=== PATIENT | female | born 1990 | race Caucasian/White ===

== ENCOUNTER 2017-05-20 18:41 | Inpatient (IN) | payer BC, OTHER ==
[~2017-05-20] VITALS: Ht 149.9 cm; Wt 68.8 kg
[2017-05-20] MEDS ORDERED: SODIUM CHLOR 0.9% 1000 ML INJ 1,000 ML IV ONE ×2 (19:15→21:00)
[2017-05-20 19:46] VITALS: BP 118/77; PULSE 161; RESP 16; TEMP 98.7; O2SAT 97
[2017-05-20 20:02] LABS: AUTOMATED NEUTROPHIL # 6.1 TH/MM3 (1.8-7.7); BASOPHIL # 0.1 TH/MM3 (0-0.2); BASOPHIL % 0.5 % (0.0-2.0); EOSINOPHIL # 0.1 TH/MM3 (0-0.4); EOSINOPHIL % 1.3 % (0.0-4.0); HEMATOCRIT 46.7 % (35.0-46.0); HEMOGLOBIN 16.3 GM/DL (11.6-15.3); LYMPH % 35.4 % (9.0-44.0); LYMPHOCYTE # 3.8 TH/MM3 (1.0-4.8); MEAN CELL VOLUME 87.6 FL (80.0-100.0); MEAN CORPUSCULAR HEMOGLOBIN 30.6 PG (27.0-34.0); MEAN PLATELET VOLUME 7.8 FL (7.0-11.0); MONO % 5.6 % (0.0-8.0); MONOCYTE # 0.6 TH/MM3 (0-0.9); NEUT % 57.2 % (16.0-70.0); PLATELET COUNT 388 TH/MM3 (150-450); RED BLOOD COUNT 5.33 MIL/MM3 (4.00-5.30); RED CELL DISTRIBUTION WIDTH 14.1 % (11.6-17.2); WHITE BLOOD COUNT 10.7 TH/MM3 (4.0-11.0)
[2017-05-20 20:43] LABS: ALBUMIN 4.4 GM/DL (3.4-5.0); AST (GOT) 22 U/L (15-37); BICARBONATE 20.2 MEQ/L (21.0-32.0); BLOOD UREA NITROGEN 11 MG/DL (7-18); CALCIUM 8.8 MG/DL (8.5-10.1); CHLORIDE 110 MEQ/L (98-107); CREATININE 0.97 MG/DL (0.50-1.00); GLOMERULAR FILTRATION RATE 69 ML/MIN (>89); GLUCOSE,RANDOM 86 MG/DL (74-106); SODIUM (NA) 143 MEQ/L (136-145)
[2017-05-20 20:44] LABS: ALT (GPT) 50 U/L (10-53)
[2017-05-20 20:51] LABS: ACETAMINOPHEN LESS THAN 2.0 MCG/ML (10.0-30.0)
[2017-05-20 20:54] LABS: ALKALINE PHOSPHATASE 74 U/L (45-117); TOTAL BILIRUBIN ADULT 0.1 MG/DL (0.2-1.0); TOTAL PROTEIN 8.4 GM/DL (6.4-8.2)
--- NOTE | 2017-05-20 21:07 | PD ---
HPI Chief Complaint: Psychiatric Symptoms Time Seen by Provider: 19:08 Travel History International Travel<30 days: No Contact w/Intl Traveler<30days: No Traveled to known affect area: No History of Present Illness HPI Patient is a 27 year old female who is brought in by police under a [place] Act after telling her she wanted to kill herself. She reports taking 12 Xanax (1mg) and drinking alcohol tonight. She denies previous suicide attempts. She denies any medical complaints. She denies any pains. [facility] Past Medical History Diminished Hearing: No Immunizations Current: Yes ?: Not : 1 Past Surgical History Oral Surgery: Yes (wisdom teeth removed) Social History Alcohol Use: No Tobacco Use: No Substance Use: No Allergies-Medications (Allergen,Severity, Reaction): Coded Allergies: No Known Allergies (Unverified , 12/19/16) Reported Meds & Prescriptions Reported Meds & Active Scripts Active No Active Prescriptions or Reported Medications Review of Systems Except as stated in HPI: all other systems reviewed are Neg General / Constitutional: No: Fever, Chills HENT: No: Headaches Cardiovascular: No: Chest Pain or Discomfort Respiratory: No: Shortness of Breath Gastrointestinal: No: Nausea, Vomiting Musculoskeletal: No: Myalgias Psychiatric: Positive: Depression, Suicidal Ideations Physical Exam Narrative GENERAL: Awake and alert, obviously intoxicated. SKIN: Focused skin assessment warm/dry. HEAD: Atraumatic. Normocephalic. EYES: Pupils enlarged, equal and reactive. No scleral icterus. EOMI. ENT: Mucous membranes pink and moist. NECK: Trachea midline. No JVD. CARDIOVASCULAR: Tachycardia. No murmur appreciated. RESPIRATORY: No accessory muscle use. Clear to auscultation. Breath sounds equal bilaterally. GASTROINTESTINAL: Abdomen soft, non-tender, nondistended. MUSCULOSKELETAL: No obvious deformities. No clubbing. No cyanosis. No edema. NEUROLOGICAL: Awake and alert. No obvious cranial nerve deficits. Motor grossly within normal limits. Normal speech. PSYCHIATRIC: alcohol on breath, clearly intoxicated Data Data Last Documented VS Vital Signs Date Time Temp Pulse Resp B/P (MAP) Pulse Ox O2 Delivery O2 Flow Rate FiO2 05/20/17 19:46 98.7 161 16 118/77 (91) 97 Orders Orders Complete Blood Count With Diff (05/20/17 19:08) Comprehensive Metabolic Panel (05/20/17 19:08) Thyroid Stimulating Hormone (05/20/17 19:08) Ed Urine Pregnancytest Poc (05/20/17 19:08) Psych Screen (05/20/17 19:08) Drug Screen, Random Urine (05/20/17 19:08) Alcohol (Ethanol) (05/20/17 19:08) Salicylates (Aspirin) (05/20/17 19:08) Tylenol (Acetaminophen) (05/20/17 19:08) Sodium Chlor 0.9% 1000 Ml Inj (Ns 1000 M (05/20/17 19:15) Restraints Non-Violent STEPH.Q3H (05/20/17 20:23) Sodium Chlor 0.9% 1000 Ml Inj (Ns 1000 M (05/20/17 21:00) Labs Laboratory Tests Test 05/20/17 19:26 White Blood Count 10.7 TH/MM3 Red Blood Count 5.33 MIL/MM3 Hemoglobin 16.3 GM/DL Hematocrit 46.7 % Mean Corpuscular Volume 87.6 FL Mean Corpuscular Hemoglobin 30.6 PG Mean Corpuscular Hemoglobin Concent 35.0 % Red Cell Distribution Width 14.1 % Platelet Count 388 TH/MM3 Mean Platelet Volume 7.8 FL Neutrophils (%) (Auto) 57.2 % Lymphocytes (%) (Auto) 35.4 % Monocytes (%) (Auto) 5.6 % Eosinophils (%) (Auto) 1.3 % Basophils (%) (Auto) 0.5 % Neutrophils # (Auto) 6.1 TH/MM3 Lymphocytes # (Auto) 3.8 TH/MM3 Monocytes # (Auto) 0.6 TH/MM3 Eosinophils # (Auto) 0.1 TH/MM3 Basophils # (Auto) 0.1 TH/MM3 CBC Comment DIFF FINAL Differential Comment Blood Urea Nitrogen 11 MG/DL Creatinine 0.97 MG/DL Random Glucose 86 MG/DL Total Protein 8.4 GM/DL Albumin 4.4 GM/DL Calcium Level 8.8 MG/DL Alkaline Phosphatase 74 U/L Aspartate Amino Transf (AST/SGOT) 22 U/L Alanine Aminotransferase (ALT/SGPT) 50 U/L Total Bilirubin 0.1 MG/DL Sodium Level 143 MEQ/L Potassium Level 3.5 MEQ/L Chloride Level 110 MEQ/L Carbon Dioxide Level 20.2 MEQ/L Anion Gap 13 MEQ/L Estimat Glomerular Filtration Rate 69 ML/MIN Thyroid Stimulating Hormone 3rd Gen 1.860 uIU/ML Salicylates Level LESS THAN 1.7 MG/DL Urine Opiates Screen NEG Acetaminophen Level LESS THAN 2.0 MCG/ML Urine Barbiturates Screen NEG Urine Amphetamines Screen NEG Urine Benzodiazepines Screen POS Urine Cocaine Screen NEG Urine Cannabinoids Screen NEG Ethyl Alcohol Level 149 MG/DL MDM Medical Decision Making Medical Screen Exam Complete: Yes Emergency Medical Condition: Yes Medical Record Reviewed: Yes Differential Diagnosis intoxication vs depression vs dehydration Narrative Course Patient is a 27 year old female who comes in under a [place] Act. She has no medical complaints, but is tachycardic on arrival. IV established, labs sent. Given IVF. Labs show she is positive for benzodiazepines and alcohol. Tachycardia improving with IVF. Observed in the ED and then medically cleared for psychiatric evaluation. Diagnosis Primary Impression: Alcohol intoxication Qualified Codes: F10.920 - Alcohol use, unspecified with intoxication, uncomplicated Additional Impression: Intoxication by drug Qualified Codes: F19.920 - Other psychoactive substance use, unspecified with intoxication, uncomplicated Scripts No Active Prescriptions or Reported Meds Luba Elliott MD May 20, 2017 21:07
[2017-05-20 22:54] VITALS: BP 124/82; PULSE 112; RESP 16; O2SAT 96
[2017-05-21 02:32] VITALS: BP 134/86; PULSE 82; RESP 16; O2SAT 98
[2017-05-21 04:00] VITALS: PULSE 100; RESP 18; O2SAT 100
[2017-05-21 08:00] VITALS: BP 128/74; PULSE 100; RESP 16; O2SAT 100
[2017-05-21] MEDS ORDERED: LORazepam 0.5 MG TAB PO PRN (10:15)
[2017-05-21] MEDS ORDERED: LORazepam 2 MG/ML VIAL IV PUSH PRN ×4 (10:15)
[2017-05-21] MEDS ORDERED: LORazepam 2 MG TAB PO PRN (10:15)
[2017-05-21] MEDS ORDERED: MAGNESIUM HYDROXIDE SUSP 30 ML CUP PO PRN (10:15)
[2017-05-21] MEDS ORDERED: LORazepam 1 MG TAB PO PRN (10:15)
[2017-05-21] MEDS ORDERED: ACETAMINOPHEN 325 MG TAB PO PRN (10:15)
[2017-05-21] MEDS ORDERED: ALUMINUM/MAGNESIUM/SIMETH 30 ML CUP PO PRN (10:15)
[2017-05-21] MEDS ORDERED: FLUMAZENIL 0.5 MG/5 ML VIAL IV PUSH PRN (10:15)
[2017-05-21] MEDS ORDERED: LORazepam 2 MG/ML VIAL IM PRN ×2 (10:15)
[2017-05-21 10:56] VITALS: BP 131/84; PULSE 120; RESP 18; TEMP 98.7; O2SAT 99
[2017-05-21 13:00] VITALS: BP 128/88; PULSE 104; RESP 18; TEMP 98.4; O2SAT 97
--- NOTE | 2017-05-21 13:48 | HHI.HP ---
Provisional Diagnosis Admission Date May 21, 2017 at 10:15 [place] I. Adjustment disorder with depressed mood, substance induced mood disorder, hypnotic-sedative use disorder, alcohol use disorder [place] II. 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 No significant medical history Certification of Person's Competence To Provide Express and Informed Consent I have personally examined Annika Chinchilla , a person being served at [facility] on, May 21, 2017 13:37. Express and informed consent means consent voluntarily given in writing, by a competent person, after sufficient explanation and disclosure of the subject matter involved to enable the person to make a knowing and willful decision without any element of force, fraud, deceit, duress, or other form of constraint or coercion. This person is 18 years of age or older, is not now known to be incompetent to consent to treatment with a guardian advocate, and does not have a health care surrogate or proxy currently making medical treatment decisions. I have found this person to be one of the following: [] Competent to provide express and informed consent, as defined above, for voluntary admission to this facility and is competent to provide express and informed consent for treatment. He/she has the consistent capacity to make well reasoned, willful, and knowing decisions concerning his or her medical or mental health treatment. The person fully and consistently understands the purpose of the admission for examination/placement and is fully capable of personally exercising all rights assured [place] [] Incompetent to provide express and informed consent to voluntary admission, and this is incompetent to provide express and informed consent to treatment. The person must be transferred to involuntary status and a petition for a guardian advocate filed with the Circuit Court. [x] Refusing to provide express and informed consent to voluntary admission but is competent to provide express and informed consent for treatment. The person must be discharged or transferred to involuntary status. Form shall be completed within 24 hours of a person's arrival at the receiving facility and filed in the clinical record of each person: 1. Admitted on a voluntary basis 2. Permitted to provide express and informed consent to his/her own treatment 3. Allowed to transfer from involuntary to voluntary status 4. Prior to permitting a person to consent to his or her own treatment after having been previously found incompetent to consent to treatment. History of Present Illness Capacity: Has Capacity HPI The patient is a 27 year-old woman, domiciled in [place] with her and one kids, unemployed, with several report a psychiatric history of anxiety, poor impulse control, no previous psychiatric hospitalizations, no previous suicidal attempts, extensive self cutting behavior as a child and adolescent, alcohol and benzodiazepines use disorder, no significant medical history who is brought in by police under a [place] Act after telling her she wanted to kill herself. She reports taking 12 Xanax (1mg) and drinking alcohol tonight. On psychiatric evaluation the patient is oppositional, very irritable, at the beginning refusing to talk. With redirection the patient is able to say that she doesn't know the reason she is here. He uses it to be internally preoccupied, very oddly related, verbally hostile. The patient says that if I don't stop bothering her right now just cannot take a cord in the ER and hand her self. When I left to asked the ER nurse the patient with a sitter in one-to-one, the patient called me and apologized for her behavior, stated that she has been very stressed, depressed, but at the same time she refuses to elaborate about the reason of her depression. He also refused to talk about the circumstances behind recent suicidal attempt by overdosing with Xanax and alcohol. Review of Systems Constitutional: DENIES: Diaphoretic episodes, Fatigue, Fever, Weight gain, Weight loss, Chills, Dizziness, Change in appetite, Night Sweats Endocrine: DENIES: Abnorml menstrual pattern, Heat/cold intolerance, Polydipsia , Polyuria, Polyphagia Eyes: DENIES: Blurred vision, Diplopia, Eye inflammation, Eye pain, Vision loss , Photosensitivity, Double Vision Ears, nose, mouth, throat: DENIES: Tinnitus, Hearing loss, Vertigo, Nasal discharge, Oral lesions, Throat pain, Hoarseness, Ear Pain, Running Nose, Epistaxis, Sinus Pain, Toothache, Odynophagia Respiratory: DENIES: Apneas, Cough, Snoring, Wheezing, Hemoptysis, Sputum production, Shortness of breath Cardiovascular: DENIES: Chest pain, Palpitations, Syncope, Dyspnea on Exertion , PND, Lower Extremity Edema, Orthopnea, Claudication Gastrointestinal: DENIES: Abdominal pain, Black stools, Bloody stools, Constipation, Diarrhea, Nausea, Vomiting, Difficulty Swallowing, Anorexia Genitourinary: DENIES: Abnormal vaginal bleeding, Dysmenorrhea, Dyspareunia, Sexual dysfunction, Urinary frequency, Urinary incontinence, Urgency, Hematuria , Dysuria, Nocturia, Vaginal discharge Musculoskeletal: DENIES: Joint pain, Muscle aches, Stiffness, Joint Swelling, Back pain, Neck pain Integumentary: DENIES: Abnormal pigmentation, Pruritus, Rash, Nail changes, Breast masses, Breast skin changes, Nipple discharge Hematologic/lymphatic: DENIES: Bruising, Lymphadenopathy Immunologic/allergic: DENIES: Eczema, Urticaria Neurologic: DENIES: Abnormal gait, Headache, Localized weakness, Paresthesias, Seizures, Speech Problems, Tremor, Poor Balance Psychiatric: COMPLAINS OF: Depression, Suicidal Ideation Past Psych History Violence risk - self (6 mos) Elevated Substance Abuse History Drugs/Alcohol past 12 months Patient reports alcohol every day, Xanax sometime Past Family Social History Coded Allergies: No Known Allergies (Unverified Allergy, Unknown, 05/21/17) No Active Prescriptions or Reported Meds Current Medications Medications (Trade) Dose Ordered Sig/Bisi Route Start Time Stop Time Status Last Admin (Ativan) 1 mg Q6H PRN PO 05/21/17 10:15 (Ativan Inj) 1 mg Q6H PRN IM 05/21/17 10:15 (Ativan) 0.5 mg Q12H PRN PO 05/21/17 10:15 (Ativan Inj) 0.5 mg Q12H PRN IM 05/21/17 10:15 (Tylenol) 650 mg Q4H PRN PO 05/21/17 10:15 (Milk Of Magnesia Liq) 30 ml DAILY PRN PO 05/21/17 10:15 (Mag-Al Plus Susp Liq) 30 ml Q6H PRN PO 05/21/17 10:15 (Habitrol 21 Mg Patch.24 Hr) 1 patch DAILY T-DERMAL 05/22/17 09:00 (Romazicon Inj) 0.2 mg Q1M PRN IV PUSH 05/21/17 10:15 (Ativan) 1 mg Q4H PRN PO 05/21/17 10:15 (Ativan Inj) 1 mg Q4H PRN IV PUSH 05/21/17 10:15 (Ativan) 2 mg Q2H PRN PO 05/21/17 10:15 (Ativan Inj) 2 mg Q2H PRN IV PUSH 05/21/17 10:15 (Ativan Inj) 2 mg Q1H PRN IV PUSH 05/21/17 10:15 (Ativan Inj) 2 mg Q15M PRN IV PUSH 05/21/17 10:15 Family Psych History No family psychiatric history Social History Patient was born in [place], she lives in [place] with her and her 2 years old kid, she is unemployed, highest level of education is 1 year college Patient's Strengths (min. 2) Verbal communication Physical Exam No tremors, no EPS, she is restless, but no withdrawal present Vital Signs Vital Signs Date Time Temp Pulse Resp B/P (MAP) Pulse Ox O2 Delivery O2 Flow Rate FiO2 05/21/17 10:56 98.7 120 18 131/84 (100) 99 Room Air I/O 05/21/17 05/21/17 05/22/17 08:00 16:00 00:00 Intake Total 2000 ml Balance 2000 ml Lab Results Test 05/20/17 19:26 White Blood Count 10.7 TH/MM3 Red Blood Count 5.33 MIL/MM3 Hemoglobin 16.3 GM/DL Hematocrit 46.7 % Mean Corpuscular Volume 87.6 FL Mean Corpuscular Hemoglobin 30.6 PG Mean Corpuscular Hemoglobin Concent 35.0 % Red Cell Distribution Width 14.1 % Platelet Count 388 TH/MM3 Mean Platelet Volume 7.8 FL Neutrophils (%) (Auto) 57.2 % Lymphocytes (%) (Auto) 35.4 % Monocytes (%) (Auto) 5.6 % Eosinophils (%) (Auto) 1.3 % Basophils (%) (Auto) 0.5 % Neutrophils # (Auto) 6.1 TH/MM3 Lymphocytes # (Auto) 3.8 TH/MM3 Monocytes # (Auto) 0.6 TH/MM3 Eosinophils # (Auto) 0.1 TH/MM3 Basophils # (Auto) 0.1 TH/MM3 CBC Comment DIFF FINAL Differential Comment Blood Urea Nitrogen 11 MG/DL Creatinine 0.97 MG/DL Random Glucose 86 MG/DL Total Protein 8.4 GM/DL Albumin 4.4 GM/DL Calcium Level 8.8 MG/DL Alkaline Phosphatase 74 U/L Aspartate Amino Transf (AST/SGOT) 22 U/L Alanine Aminotransferase (ALT/SGPT) 50 U/L Total Bilirubin 0.1 MG/DL Sodium Level 143 MEQ/L Potassium Level 3.5 MEQ/L Chloride Level 110 MEQ/L Carbon Dioxide Level 20.2 MEQ/L Anion Gap 13 MEQ/L Estimat Glomerular Filtration Rate 69 ML/MIN Thyroid Stimulating Hormone 3rd Gen 1.860 uIU/ML Salicylates Level LESS THAN 1.7 MG/DL Urine Opiates Screen NEG Acetaminophen Level LESS THAN 2.0 MCG/ML Urine Barbiturates Screen NEG Urine Amphetamines Screen NEG Urine Benzodiazepines Screen POS Urine Cocaine Screen NEG Urine Cannabinoids Screen NEG Ethyl Alcohol Level 149 MG/DL Mental Status Examination Appearance: Appropriate Consciousness: Alert Orientation: x4 Motor Activity: Normal gait Speech: Unremarkable Language: Adequate Fund of Knowledge: Adequate Attention and Concentration: Adequate Memory: Unremarkable Mood: Angry Affect: Irritable Thought Process & Associations: Intact Thought Content: Appropriate Hallucination Type: None Delusion Type: None Suicidal Ideation: Yes Suicidal Plan: No Suicidal Intention: No Homicidal Ideation: No Homicidal Plan: No Homicidal Intention: No Insight: Poor Judgment: Poor Assessment & Plan Problem List: (1) Adjustment disorder with depressed mood ICD Codes: F43.21 - Adjustment disorder with depressed mood Assessment & Plan: On psychiatric evaluation today the patient is irritable, oppositional, at the beginning refusing to cooperate with a psychiatric interview. She was very verbally hostile, stating that she doesn't want to talk , at some point she says that she will kill herself here in the ER with a piece a cord. As per nurses the patient has been unpredictable, very reasonable, verbally abusive, internally preoccupied. Patient does not provide circumstances about recent suicidal attempt by overdosing. I was able to de- escalate her verbally, and she was able to contract for safety in the hospital, but is still hesitant to talk about recent suicidal attempt. I tried to get collateral information from her , but unfortunately he did not answer the phone. Patient will be admitted in psychiatry for safety and due to her increased risk of danger to self. We'll start Seroquel 50 mg twice a day for impulse control. CIWA protocol. social service worker intervention for psychosocial assessment, collateral information, individual and group therapy, to coordinating a safe discharge. Assessment & Plan Estimated LOS: Ross Sanchez MD May 21, 2017 13:48
[2017-05-21] MEDS: LORazepam 1 MG TAB PO PRN ×2 (20:30→20:31)
[2017-05-21] MEDS: QUEtiapine FUMARATE 25 MG TAB PO SCH (20:30)
[2017-05-22 06:14] VITALS: BP 110/63; PULSE 100; RESP 17; TEMP 100.3; O2SAT 100
[2017-05-22] MEDS: NICOTINE 21 MG/24 HR PATCH T-DERMAL SCH (09:00)
[2017-05-22] MEDS: QUEtiapine FUMARATE 25 MG TAB PO SCH ×2 (09:42→21:00)
[2017-05-22 11:19] LABS: BICARBONATE 20.6 MEQ/L (21.0-32.0); BLOOD UREA NITROGEN 13 MG/DL (7-18); CHLORIDE 108 MEQ/L (98-107); CHOLESTEROL 136 MG/DL (120-200); CREATININE 0.75 MG/DL (0.50-1.00); GLOMERULAR FILTRATION RATE 93 ML/MIN (>89); GLUCOSE,RANDOM 125 MG/DL (74-106); SODIUM (NA) 139 MEQ/L (136-145)
[2017-05-22 11:22] LABS: CHOLESTEROL/ HDL RATIO 3.08 RATIO; HDL CHOLESTEROL 44.1 MG/DL (40.0-60.0); LDL CHOLESTEROL 56 MG/DL (0-99); TRIGLYCERIDES 179 MG/DL (42-150)
--- NOTE | 2017-05-22 12:40 | HHI.PYPN ---
Subjective Remarks This is a request for second opinion. Admission note was reviewed and I agree with its contents. Patient was admitted after an overdose on alcohol and Xanax. During today's interview patient is irritable with a bewildered look. She is mad that everybody keeps asking her the same questions. She later apologizes for her behavior at the end of the interview. She is quite vague in the rectum guarded. She does continue to deny suicidal homicidal ideation intent or plan here in this unit. Social with others in taking her medications Mental Status Examination Appearance: Appropriate Consciousness: Alert Orientation: x4 Motor Activity: Normal gait Speech: Unremarkable Language: Adequate Fund of Knowledge: Adequate Attention and Concentration: Adequate Memory: Unremarkable Mood: Angry Affect: Irritable Thought Process & Associations: Intact Thought Content: Appropriate Hallucination Type: None Delusion Type: None Suicidal Ideation: No Suicidal Plan: No Suicidal Intention: No Homicidal Ideation: No Homicidal Plan: No Homicidal Intention: No Insight: Poor Judgment: Poor Results Labs Test 05/22/17 10:42 Blood Urea Nitrogen 13 MG/DL Creatinine 0.75 MG/DL Random Glucose 125 MG/DL Calcium Level 9.0 MG/DL Sodium Level 139 MEQ/L Potassium Level 3.4 MEQ/L Chloride Level 108 MEQ/L Carbon Dioxide Level 20.6 MEQ/L Anion Gap 10 MEQ/L Estimat Glomerular Filtration Rate 93 ML/MIN Triglycerides Level 179 MG/DL Cholesterol Level 136 MG/DL LDL Cholesterol 56 MG/DL HDL Cholesterol 44.1 MG/DL Cholesterol/HDL Ratio 3.08 RATIO Vitals/IOs Vital Signs Date Time Temp Pulse Resp B/P (MAP) Pulse Ox O2 Delivery O2 Flow Rate FiO2 05/22/17 06:14 100.3 100 17 110/63 (79) 100 05/21/17 10:56 Room Air Assessment & Plan Problem List: (1) Adjustment disorder with depressed mood ICD Codes: F43.21 - Adjustment disorder with depressed mood Assessment & Plan I agree with the first opinion to continue petition. Criteria include suicide attempt Justification for Cont. Inpt. Patient would decompensate in a less restrictive setting Cyril Armendariz DO May 22, 2017 12:40
[2017-05-22 18:07] VITALS: BP 113/77; PULSE 112; RESP 17; TEMP 98.1; O2SAT 99
[2017-05-23 06:25] VITALS: BP 130/77; PULSE 115; RESP 18; TEMP 98.3; O2SAT 98
[2017-05-23] MEDS: NICOTINE 21 MG/24 HR PATCH T-DERMAL SCH (09:00)
[2017-05-23] MEDS: QUEtiapine FUMARATE 25 MG TAB PO SCH ×2 (09:03→20:05)
--- NOTE | 2017-05-23 11:51 | HHI.PYPN ---
Subjective Remarks Patient seen and examined with nurse. Chart reviewed. Case discussed with nursing staff. No behavioral issues noted. Case discussed with counselor. On my examination today, patient reports her presenting overdose was secondary to "alcohol and stress." Stressors include feeling somewhat lonely and isolated, difficulties with her and financial issues. She says that the stressors were "a little too much" and in her intoxicated state she decided to take some benzodiazepines. She says that after she had done so she was worried that she might genuinely have hurt herself, although this was not her reported intent initially, and so she reportedly wrote a note to her after the overdose to explain what she had done. She denies any suicidal or homicidal ideation presently. She denies any previous history of suicide attempts. She denies any family history of suicide. She denies any substance use issues. She denies any access to guns or firearms. No issues with mood. No psychotic symptoms. Denies side effects from medications some mild tiredness. No physical complaints. No withdrawal symptoms. Review of Systems Except as stated in HPI: all other systems reviewed are Neg Mental Status Examination Appearance: Appropriate Consciousness: Alert Orientation: x4 Motor Activity: Normal gait, Other (No signs of withdrawal noted.) Speech: Unremarkable Language: Adequate Fund of Knowledge: Adequate Attention and Concentration: Adequate Memory: Unremarkable Mood: Appropriate Affect: Appropriate Thought Process & Associations: Intact, Logical, Linear Thought Content: Appropriate Hallucination Type: None Delusion Type: None Suicidal Ideation: No Suicidal Plan: No Suicidal Intention: No Homicidal Ideation: No Homicidal Plan: No Homicidal Intention: No Insight: Fair Judgment: Adequate (Fair) Results Labs Labs reviewed. Hypokalemia noted. Hemoglobin A1c pending. Vitals/IOs Vital Signs Date Time Temp Pulse Resp B/P (MAP) Pulse Ox O2 Delivery O2 Flow Rate FiO2 05/23/17 06:25 98.3 115 18 130/77 (94) 98 05/21/17 10:56 Room Air Assessment & Plan Problem List: (1) Adjustment disorder with depressed mood ICD Codes: F43.21 - Adjustment disorder with depressed mood Assessment & Plan Continue Seroquel as ordered. Replete potassium and check a BMP and magnesium in the morning. Counselor to obtain collateral information from patient's . Continue to monitor on the inpatient unit. I did offer to transfer the patient to the lower acuity unit but the patient has declined. Continue other medications and care as ordered. Justification for Cont. Inpt. Monitoring for impairment in safety, none noted. Discharge Planning Pending outcome of observation and collateral from . Request HC Surrog/Guard Advoc?: No Anastacio Nuno MD May 23, 2017 11:51
[2017-05-23] MEDS ORDERED: POTASSIUM CHLORIDE 10 MEQ CONTROLLED RELEASE TAB PO ONE (15:00)
[2017-05-23 16:32] VITALS: BP 133/88; PULSE 101; RESP 18; TEMP 96.5; O2SAT 98
[2017-05-24 05:46] VITALS: BP 119/86; PULSE 91; RESP 18; TEMP 97; O2SAT 98
[2017-05-24] MEDS: NICOTINE 21 MG/24 HR PATCH T-DERMAL SCH (09:00)
[2017-05-24] MEDS: QUEtiapine FUMARATE 25 MG TAB PO SCH (09:00)
[2017-05-24 09:20] LABS: BICARBONATE 27.5 MEQ/L (21.0-32.0); CALCIUM 9.1 MG/DL (8.5-10.1); CREATININE 0.81 MG/DL (0.50-1.00); MAGNESIUM 1.8 MG/DL (1.5-2.5)
[2017-05-24] MEDS ORDERED: SERO25TA PO (10:43)
--- NOTE | 2017-05-24 10:43 | HHI.DS ---
Psychiatry Discharge Summary Inpatient Psychiatric care?: Yes Advance Directive: No Reason Not Provided: refused Mental Health AdvanceDirective: No Health Care Proxy: No Admission Admission Date May 21, 2017 at 10:15 Admission Diagnosis: (1) Adjustment disorder with depressed mood ICD Code: F43.21 - Adjustment disorder with depressed mood Brief History The patient is a 27 year-old woman, domiciled in [place] with her and one kids, unemployed, with several report a psychiatric history of anxiety, poor impulse control, no previous psychiatric hospitalizations, no previous suicidal attempts, extensive self cutting behavior as a child and adolescent, alcohol and benzodiazepines use disorder, no significant medical history who is brought in by police under a [place] Act after telling her she wanted to kill herself. She reports taking 12 Xanax (1mg) and drinking alcohol tonight. On psychiatric evaluation the patient is oppositional, very irritable, at the beginning refusing to talk. With redirection the patient is able to say that she doesn't know the reason she is here. He uses it to be internally preoccupied, very oddly related, verbally hostile. The patient says that if I don't stop bothering her right now just cannot take a cord in the ER and hand her self. When I left to asked the ER nurse the patient with a sitter in one-to-one, the patient called me and apologized for her behavior, stated that she has been very stressed, depressed, but at the same time she refuses to elaborate about the reason of her depression. He also refused to talk about the circumstances behind recent suicidal attempt by overdosing with Xanax and alcohol. Tobacco Use In Past 30 Days: No Tobacco Past 30 Days Alcohol Use: Monthly or Less Hospital Course Patient was admitted to a locked, inpatient psychiatric unit. Appropriate precautions were in place throughout patient's hospital stay. Patient was seen and examined on the unit by psychiatry and also visited by counselor. Psychotropic medications were adjusted. Patient tolerated medications well without side effects. Patient had improvement in presenting psychiatric symptomatology during the course of her hospital stay. There was no evidence of any suicidality or homicidality on the inpatient unit. The patient remained in good behavioral control and was medication compliant. On the day of discharge: Patient seen and examined with nurse. Chart reviewed. Case discussed with nursing staff. No behavioral issues noted overnight. Case discussed with counselor. Counselor has reached out to the patient's who requests that patient be discharged home today. He plans to secure the patient's medications. He offers no ongoing safety concerns per counselor report. On my examination today, the patient is requesting discharge from the inpatient psychiatric unit today. She denies any suicidal or homicidal ideation , intent or plan on direct questioning and contracts for safety. I can elicit no depressive or hypomanic/manic symptoms presently and the patient describes her mood as good. She denies any audiovisual hallucinations. I can elicit no delusional material. There is no evidence of any impairment in reality construction. No side effects from medications. No physical complaints. Suicide and violence risk assessment on day of discharge both suggest lower imminent risk from mental illness as defined under the Boswell act, and her level of function is adequate for outpatient care. Substance use and cluster B personality style are chronic but not acute or imminent risk factors, and these risk factors would not be ameliorated by longer inpatient psychiatric hospital stay. The patient no longer meets criteria for involuntary psychiatric hospitalization. She is requesting discharge from the inpatient psychiatric unit today, and I have no basis to retain her over her objection at this point. Patient will be discharged home today with psychiatric follow-up as arranged by counselor. Patient is also to follow-up with primary care. I have counseled the patient to abstain from substances of abuse and have recommended that she pursue chemical dependency evaluation and treatment on an outpatient basis. I have counseled the patient regarding warning signs for need to return to the psychiatric emergency room as part of the general safety plan. Results Blood Pressure 119 / 86 Vital Signs Date Time Temp Pulse Resp B/P (MAP) Pulse Ox O2 Delivery O2 Flow Rate FiO2 05/24/17 05:46 97.0 91 18 119/86 (97) 98 05/21/17 10:56 Room Air Laboratory Tests Test 05/22/17 10:42 05/24/17 08:19 Random Glucose 125 MG/DL (74-106) Potassium Level 3.4 MEQ/L (3.5-5.1) 3.2 MEQ/L (3.5-5.1) Chloride Level 108 MEQ/L (98-107) Carbon Dioxide Level 20.6 MEQ/L (21.0-32.0) Triglycerides Level 179 MG/DL (42-150) Estimat Glomerular Filtration Rate 85 ML/MIN (>89) Laboratory Results Test 05/22/17 10:42 Cholesterol Level 136 MG/DL (120-200) HDL Cholesterol 44.1 MG/DL (40.0-60.0) Hemoglobin A1c 5.0 % (4.3-6.0) LDL Cholesterol 56 MG/DL (0-99) Triglycerides Level 179 MG/DL (42-150) Summary of Procedures None done Imaging None done Pending results at discharge: No Medications # of Antipsychotic meds at D/C: 1 Approp Antipsych med options 1 - Minimum of three failed multiple trials of monotherapy. 2 - Documented plan to taper to monotherapy due to previous use of multiple meds OR cross-taper in progress at D/C. 3 - Documentation of augmentation of Clozapine. 4 - Justification other than those listed in allowable values 1-3, document here : Discharge Discharge Date: May 24, 2017 Discharge Diagnosis: (1) Adjustment disorder with depressed mood Diagnosis: Principal (resolved) ICD Code: F43.21 - Adjustment disorder with depressed mood (2) Alcohol abuse Diagnosis: Secondary (counseled to quit) ICD Code: F10.10 - Alcohol abuse, uncomplicated (3) Cluster B personality traits Diagnosis: Secondary Pt Condition on Discharge: Stable Discharge Disposition: Discharge Home Discharge Instructions Diet Instructions: As Tolerated, No Restrictions Activities you can perform: Weight Bearing as Jose Armando Scheduled Appointment: as per counselor's notes New Orders: BASIC METABOLIC PROF - 3-5 Days New Medications: Quetiapine (Seroquel) 25 Mg Tab 25 MG PO BID for Mental Health for 15 Days, #30 TAB 1 Refill Discharge Time > 30 minutes Mental Status Examination Appearance: Appropriate Consciousness: Alert Orientation: x4 Motor Activity: Normal gait, Other (no abnormal motor movements noted. No signs of withdrawal noted.) Speech: Unremarkable Language: Adequate Fund of Knowledge: Adequate Attention and Concentration: Adequate Memory: Unremarkable Mood: Appropriate Affect: Appropriate Thought Process & Associations: Intact, Logical, Goal directed, Linear Thought Content: Appropriate Hallucination Type: None Delusion Type: None Suicidal Ideation: No Suicidal Plan: No Suicidal Intention: No Homicidal Ideation: No Homicidal Plan: No Homicidal Intention: No Mental Status Exam Remarks Insight and judgment are fair Discharge/Advance Care Plan Health Problems: (1) Adjustment disorder with depressed mood Goals to promote your health * To prevent worsening of your condition and complications * To maintain your health at the optimal level Directions to meet your goals Take your medications as prescribed Follow your dietary instruction Follow activity as directed Keep your appointments as scheduled Take your immunizations and boosters as scheduled If your symptoms worsen call your PCP, if no PCP go to Urgent Care Center or Emergency Room For 24/ questions related to your inpatient stay or results of tests pending at discharge, please contact Dr. Anastacio Nuno at Smoking is Dangerous to Your Health. Avoid second hand smoking Anastacio Nuno MD May 24, 2017 10:43
[2017-05-24] MEDS ORDERED: POTASSIUM CHLORIDE 10 MEQ CONTROLLED RELEASE TAB PO ONE (10:45)
== END 2017-05-24 13:54 | disposition home or self-care (01) | DRG 881 ==
LOC: NEPD 18:41 → NEDA 05-21 10:15 → H270 05-21 12:45
PROVIDERS: ADMIT Psychiatry & Neurology Psychiatry; ATTEND Psychiatry & Neurology Psychiatry
DX: F43.21 Adjustment disorder with depressed mood (principal); R45.851 Suicidal ideations; R00.0 Tachycardia, unspecified; T42.4X2A Poisoning by benzodiazepines, intentional self-harm, initial encounter; T51.0X2A Toxic effect of ethanol, intentional self-harm, initial encounter; F41.9 Anxiety disorder, unspecified; F10.129 Alcohol abuse with intoxication, unspecified; Y90.6 Blood alcohol level of 120-199 mg/100 ml; F19.920 Other psychoactive substance use, unspecified with intoxication, uncomplicated; Z59.9 Problem related to housing and economic circumstances, unspecified
CPT/HCPCS: 80048; 80053; 80061; 80307; 83036; 83735; 84443; 84703; 85025; 96360; 96361; J7030

== ENCOUNTER 2017-06-06 16:36 | Emergency (ER) | payer BC, OTHER ==
[~2017-06-06] VITALS: Ht 149.9 cm; Wt 69.0 kg
[~2017-06-06 16:36] MED LIST: SERO25TA PO
[2017-06-06 16:50] VITALS: BP 123/93; PULSE 103; RESP 20; TEMP 99.1; O2SAT 96
[2017-06-06 17:04] LABS: BLOOD, URINE LARGE (NEG); GLUCOSE,URINE 250 mg/dL (NEG); KETONE, URINE TRACE mg/dL (NEG); NITRITE,URINE POS (NEG); PH, URINE 6.5 (5.0-8.5); URINE LEUKOCYTE ESTERASE MOD (NEG)
[2017-06-06 17:05] LABS: BILIRUBIN, URINE NEG (NEG); URINE COLOR ORANGE (YELLW/STRAW)
[2017-06-06] MEDS ORDERED: SODIUM CHLOR 0.9% 1000 ML INJ 1,000 ML IV SCH (17:13)
[2017-06-06] MEDS ORDERED: SODIUM CHLORIDE 0.9% FLUSH 10 ML FLUSH IV FLUSH PRN (17:15)
[2017-06-06] MEDS ORDERED: ACETAMINOPHEN 325 MG TAB PO ONE (17:15)
[2017-06-06 17:16] LABS: BACTERIA, URINE FEW /hpf; SQUAMOUS EPITHELIAL CELL URINE 0-1 /hpf (0-5); TRANSITIONAL EPI CELLS, URINE 0-2 /hpf; WBC, URINE INNUM /hpf (0-5); WHITE BLOOD CELL CLUMPS FEW
[2017-06-06 17:28] VITALS: O2SAT 96
[2017-06-06 17:31] LABS: AUTOMATED NEUTROPHIL # 9.3 TH/MM3 (1.8-7.7); BASOPHIL # 0.1 TH/MM3 (0-0.2); BASOPHIL % 0.7 % (0.0-2.0); EOSINOPHIL # 0.2 TH/MM3 (0-0.4); EOSINOPHIL % 1.3 % (0.0-4.0); HEMATOCRIT 40.4 % (35.0-46.0); HEMOGLOBIN 13.5 GM/DL (11.6-15.3); LYMPH % 14.2 % (9.0-44.0); LYMPHOCYTE # 1.7 TH/MM3 (1.0-4.8); MEAN CELL VOLUME 88.1 FL (80.0-100.0); MEAN CORPUSCULAR HEMOGLOBIN 29.5 PG (27.0-34.0); MEAN CORPUSCULAR HGB CONC 33.5 % (32.0-36.0); MEAN PLATELET VOLUME 7.7 FL (7.0-11.0); MONO % 4.9 % (0.0-8.0); MONOCYTE # 0.6 TH/MM3 (0-0.9); NEUT % 78.9 % (16.0-70.0); PLATELET COUNT 325 TH/MM3 (150-450); RED BLOOD COUNT 4.59 MIL/MM3 (4.00-5.30); RED CELL DISTRIBUTION WIDTH 12.5 % (11.6-17.2); WHITE BLOOD COUNT 11.9 TH/MM3 (4.0-11.0)
[2017-06-06 17:33] VITALS: BP 114/68; PULSE 103; RESP 20; O2SAT 95
[2017-06-06 17:51] LABS: CHLORIDE 106 MEQ/L (98-107); SODIUM (NA) 139 MEQ/L (136-145)
[2017-06-06 17:54] LABS: CALCIUM 8.7 MG/DL (8.5-10.1)
[2017-06-06 17:55] LABS: ALBUMIN 3.7 GM/DL (3.4-5.0); BICARBONATE 26.8 MEQ/L (21.0-32.0); BLOOD UREA NITROGEN 9 MG/DL (7-18); GLUCOSE,RANDOM 91 MG/DL (74-106)
--- NOTE | 2017-06-06 17:56 | PD ---
HPI Chief Complaint: Flank/Kidney Pain Time Seen by Provider: 17:10 Travel History International Travel<30 days: No Contact w/Intl Traveler<30days: No Traveled to known affect area: No History of Present Illness HPI 27-year-old female here for evaluation of dysuria and left flank pain. Symptoms started yesterday with dysuria. She began to have left flank pain today. Pain is described as sharp, nonradiating, constant. She has had a temp of 99.9F at home. No nausea or vomiting. No diarrhea. No history of abdominal surgeries. She reports history of pyelonephritis when she was . [facility] Past Medical History Anxiety: Yes Depression: Yes Cancer: No Cardiovascular Problems: No Diminished Hearing: No Endocrine: No Genitourinary: No Immune Disorder: No Musculoskeletal: No Neurologic: No Psychiatric: Yes Reproductive: No Respiratory: No Immunizations Current: Yes ?: Not LMP: NOW : 1 Past Surgical History Oral Surgery: Yes (wisdom teeth removed) Social History Alcohol Use: No Tobacco Use: No Substance Use: No Allergies-Medications (Allergen,Severity, Reaction): Coded Allergies: No Known Allergies (Unverified Allergy, Unknown, 06/06/17) Reported Meds & Prescriptions Reported Meds & Active Scripts Active No Active Prescriptions or Reported Medications Review of Systems Except as stated in HPI: all other systems reviewed are Neg Physical Exam Narrative GENERAL: Well-developed, well-nourished, comfortable, no apparent distress. SKIN: Focused skin assessment warm/dry. No rash. HEAD: Atraumatic. Normocephalic. EYES: Pupils equal and round. No scleral icterus. No injection or drainage. ENT: Mucous membranes pink and moist. NECK: Trachea midline. No JVD. CARDIOVASCULAR: Regular rate and rhythm. No murmur appreciated. RESPIRATORY: No accessory muscle use. Clear to auscultation. Breath sounds equal bilaterally. GASTROINTESTINAL: Abdomen soft, non-tender, nondistended. MUSCULOSKELETAL: No obvious deformities. No clubbing. No cyanosis. No edema. Moderate left CVA tenderness. No right CVA tenderness. No midline vertebral step-off or tenderness. NEUROLOGICAL: Awake and alert. No obvious cranial nerve deficits. Motor grossly within normal limits. Normal speech. PSYCHIATRIC: Appropriate mood and affect; insight and judgment normal. Data Data Last Documented VS Vital Signs Date Time Temp Pulse Resp B/P (MAP) Pulse Ox O2 Delivery O2 Flow Rate FiO2 06/06/17 18:36 102 20 91/56 (68) 96 06/06/17 16:50 99.1 Orders Orders Urinalysis - C+S If Indicated (06/06/17 16:56) Ed Urine Pregnancytest Poc (06/06/17 16:56) Complete Blood Count With Diff (06/06/17 17:13) Comprehensive Metabolic Panel (06/06/17 17:13) Lipase (06/06/17 17:13) Prothrombin Time / Inr (Pt) (06/06/17 17:13) Act Partial Throm Time (Ptt) (06/06/17 17:13) Iv Access Insert/Monitor (06/06/17 17:13) Ecg Monitoring (06/06/17 17:13) Oximetry (06/06/17 17:13) Sodium Chlor 0.9% 1000 Ml Inj (Ns 1000 M (06/06/17 17:13) Sodium Chloride 0.9% Flush (Ns Flush) (06/06/17 17:15) Acetaminophen (Tylenol) (06/06/17 17:15) Urine Culture (06/06/17 16:50) Ceftriaxone Inj (Rocephin Inj) (06/06/17 18:00) Sodium Chlor 0.9% 1000 Ml Inj (Ns 1000 M (06/06/17 18:15) Ketorolac Inj (Toradol Inj) (06/06/17 18:15) Labs Laboratory Tests Test 06/06/17 16:50 06/06/17 17:20 Urine Collection Type CLEAN CATCH Urine Color ORANGE Urine Turbidity TURBID Urine pH 6.5 Urine Specific [place] 1.025 Urine Protein 300 OR GREATER mg/dL Urine Glucose (UA) 250 mg/dL Urine Ketones TRACE mg/dL Urine Occult Blood LARGE Urine Nitrite POS Urine Bilirubin NEG Urine Urobilinogen GREATER/EQUAL 8.0 MG/DL Urine Leukocyte Esterase MOD Urine RBC 25-49 /hpf Urine WBC INNUM /hpf Urine WBC Clumps FEW Urine Squamous Epithelial Cells 0-1 /hpf Urine Transitional Epithelial Cells 0-2 /hpf Urine Bacteria FEW /hpf Microscopic Urinalysis Comment CULTURE INDICATED White Blood Count 11.9 TH/MM3 Red Blood Count 4.59 MIL/MM3 Hemoglobin 13.5 GM/DL Hematocrit 40.4 % Mean Corpuscular Volume 88.1 FL Mean Corpuscular Hemoglobin 29.5 PG Mean Corpuscular Hemoglobin Concent 33.5 % Red Cell Distribution Width 12.5 % Platelet Count 325 TH/MM3 Mean Platelet Volume 7.7 FL Neutrophils (%) (Auto) 78.9 % Lymphocytes (%) (Auto) 14.2 % Monocytes (%) (Auto) 4.9 % Eosinophils (%) (Auto) 1.3 % Basophils (%) (Auto) 0.7 % Neutrophils # (Auto) 9.3 TH/MM3 Lymphocytes # (Auto) 1.7 TH/MM3 Monocytes # (Auto) 0.6 TH/MM3 Eosinophils # (Auto) 0.2 TH/MM3 Basophils # (Auto) 0.1 TH/MM3 CBC Comment DIFF FINAL Differential Comment Prothrombin Time 10.1 SEC Prothromb Time International Ratio 1.0 RATIO Activated Partial Thromboplast Time 30.1 SEC Blood Urea Nitrogen 9 MG/DL Creatinine 0.63 MG/DL Random Glucose 91 MG/DL Total Protein 7.5 GM/DL Albumin 3.7 GM/DL Calcium Level 8.7 MG/DL Alkaline Phosphatase 75 U/L Aspartate Amino Transf (AST/SGOT) 17 U/L Alanine Aminotransferase (ALT/SGPT) 38 U/L Total Bilirubin 0.2 MG/DL Sodium Level 139 MEQ/L Potassium Level 3.5 MEQ/L Chloride Level 106 MEQ/L Carbon Dioxide Level 26.8 MEQ/L Anion Gap 6 MEQ/L Estimat Glomerular Filtration Rate 113 ML/MIN Lipase 194 U/L [facility] Medical Decision Making Medical Screen Exam Complete: Yes Emergency Medical Condition: Yes Differential Diagnosis UTI, pyelonephritis Narrative Course Initial vital signs show heart rate 103, blood pressure 123/93, pulse ox 96% on room air temp of 99.1F. CBC: WBC 11.9, hemoglobin 13.5, hematocrit 40.4, platelets 325, neutrophils 78%. CMP is unremarkable. Lipase is 194. UA: 300 or greater protein, 250 glucose, trace ketones, large occult blood, positive nitrites, moderate leukocyte esterase, 25-50 RBCs, innumerable WBCs, few WBC clumps, few bacteria. Patient was given 2 L normal saline IV, 1 g of IV Rocephin, Tylenol, and Toradol. On reassessment she states she feels well and prefers to be discharged home. Her heart rate has remained right around 100 bpm, and chart review shows that her heart rate is usually around 100. She tells me that the tachycardia is usual for her. Last blood pressure is 124/72. She likely has pyelonephritis. She will be discharged home with a prescription for Bactrim. She has an appointment with her primary care physician in 2 days. She was advised on when to return to the emergency department patient verbalizes understanding and agreement with plan. Diagnosis Primary Impression: UTI (urinary tract infection) Qualified Codes: N10 - Acute pyelonephritis Referrals: Primary Care Physician 2 days Additional Instructions: Follow-up with your primary care physician on Tuesday as scheduled. Stay hydrated with plenty of fluids. Keep fever under control with Tylenol and ibuprofen. Take antibiotics as prescribed. Return to the emergency department for worsening symptoms or any other concerns. Scripts Sulfamethoxazole-Trimethoprim (Bactrim DS) 800-160 Mg Tab 1 TAB PO BID for Infection for 14 Days, #28 TAB 0 Refills Prov: Chris Cervantes MD 06/06/17 Disposition: DISCHARGE HOME Condition: Stable Chris Cervantes MD Jun 06, 2017 17:56
[2017-06-06 17:58] LABS: ALT (GPT) 38 U/L (10-53); AST (GOT) 17 U/L (15-37); CREATININE 0.63 MG/DL (0.50-1.00); GLOMERULAR FILTRATION RATE 113 ML/MIN (>89)
[2017-06-06 17:59] LABS: TOTAL BILIRUBIN ADULT 0.2 MG/DL (0.2-1.0); TOTAL PROTEIN 7.5 GM/DL (6.4-8.2)
[2017-06-06] MEDS ORDERED: cefTRIAXone INJ 1,000 MG in SODIUM CHLORIDE 0.9% INJ 100 ML IV ONE (18:00)
[2017-06-06 18:01] LABS: ALKALINE PHOSPHATASE 75 U/L (45-117)
[2017-06-06] MEDS ORDERED: SODIUM CHLOR 0.9% 1000 ML INJ 1,000 ML IV ONE (18:15)
[2017-06-06] MEDS ORDERED: KETOROLAC TROMETHAMINE 30 MG/ML (IVP) VIAL IV PUSH ONE (18:15)
[2017-06-06 18:27] LABS: PROTHROMBIN TIME - PATIENT 10.1 SEC (9.8-11.6)
[2017-06-06 18:36] VITALS: BP 91/56; PULSE 102; RESP 20; O2SAT 96
[2017-06-06] MEDS ORDERED: BACT800T5 PO (18:58)
[2017-06-06 19:53] VITALS: BP 116/64
== END 2017-06-06 19:57 | disposition home or self-care (01) ==
LOC: PHED 16:36
DX: N10 Acute pyelonephritis (principal); R10.9 Unspecified abdominal pain
CPT/HCPCS: 80053; 81001; 83690; 84703; 85025; 85610; 85730; 87077; 87086; 87186; 96361; 96365; 96375; 99284; J0696; J1885; J7030